=== PATIENT | male | born 1985 | race Two or more races ===

== ENCOUNTER 2016-12-29 14:52 | Emergency (ER) | payer OTHER ==
[~2016-12-29] VITALS: Ht 175.3 cm; Wt 100.0 kg
[2016-12-29 17:28] VITALS: BP 132/73
== END 2016-12-29 17:49 | disposition home or self-care (01) ==
LOC: ER 17:48
DX: H66.92 Otitis media, unspecified, left ear (principal); F17.210 Nicotine dependence, cigarettes, uncomplicated
CPT/HCPCS: 99283

== ENCOUNTER 2017-01-28 11:18 | Emergency (ER) | payer SELFPAY ==
[~2017-01-28] VITALS: Ht 180.3 cm; Wt 95.0 kg
[2017-01-28 11:29] VITALS: BP 139/88
== END 2017-01-28 12:41 | disposition home or self-care (01) ==
LOC: ER 12:25
DX: H60.92 Unspecified otitis externa, left ear (principal); H66.92 Otitis media, unspecified, left ear
CPT/HCPCS: 99283

== ENCOUNTER 2025-04-17 21:56 | Inpatient (IN) | payer MEDICAID ==
[~2025-04-17] VITALS: Ht 177.8 cm; Wt 68.0 kg
[2025-04-17 23:41] LABS: BASOPHILS % 0.3 % (0.0-2.0); EOSINOPHILS % 0.2 % (0.0-5.0); HEMATOCRIT. 27.3 % (42.0-52.0); HEMOGLOBIN. 9.1 g/dL (14.0-18.0); LYMPHOCYTES % 21.1 % (20.0-50.0); MEAN PLATELET VOLUME 7.5 fl (7.4-10.4); MONOCYTES % 7.5 % (2.0-8.0); NEUTROPHILS % 70.9 % (40.0-76.0); PLATELET 297 x1000/uL (130-400); RED BLOOD CELL COUNT 3.33 mill/uL (4.7-6.1); RED CELL DISTRIBUTION WIDTH 14.5 % (11.6-14.6)
[2025-04-17 23:58] LABS: CREATININE 1.0 mg/dL (0.6-1.3); UREA NITROGEN BLOOD 10 mg/dL (9-23)
[2025-04-18] LABS: TROPONIN I HIGH SENSITIVITY < 4 ng/L (3.0-53)
[2025-04-18 03:44] LABS: *AMPHETAMINES SCREEN URINE NEGATIVE (NEGATIVE)
[2025-04-18 03:45] LABS: *BARBITURATES SCREEN URINE NEGATIVE (NEGATIVE); *BENZODIAZEPINES SCREEN URINE NEGATIVE (NEGATIVE); *COCAINE SCREEN URINE NEGATIVE (NEGATIVE); CANNABINOID URINE SCREEN NEGATIVE (NEGATIVE); ECSTASY MDMA SCREEN URINE NEGATIVE (NEGATIVE); METHADONE URINE SCREEN NEGATIVE (NEGATIVE); OPIATES URINE SCREEN NEGATIVE (NEGATIVE); PHENCYCLIDINE URINE SCREEN NEGATIVE (NEGATIVE)
[2025-04-18] MEDS: SODIUM CHLORIDE 0.9% 1,000 ML IV ONE (04:29)
[2025-04-18 05:07] LABS: ASPARTATE AMINOTRANSFERASE 48 IU/L (<34); BILIRUBIN DIRECT 0.2 mg/dL (<=3.0); BILIRUBIN TOTAL 0.6 mg/dL (0.1-1.0); PROTEIN TOTAL 8.7 g/dL (6.0-8.3)
[2025-04-18] MEDS: IOHEXOL-350 100 ML BOTTLE ONE (07:17)
[2025-04-18] MEDS ORDERED: GUAIFENESIN 200MG/10ML SUGAR FREE UDC PO PRN (09:00)
[2025-04-18] MEDS ORDERED: IPRATROPIUM/ALBUTEROL 0.5-3(2.5)MG/3ML NEB HHN PRN (09:00)
[2025-04-18] MEDS ORDERED: CLONIDINE 0.1MG TABLET PO PRN (09:00)
[2025-04-18] MEDS ORDERED: DOXYCYCLINE HYCLATE 100 MG/VIAL IV SCH (11:00)
[2025-04-18] MEDS ORDERED: CEFTRIAXONE 1GM/50ML 50 ML IV SCH (11:30)
[2025-04-18 12:38] VITALS: BP 102/88; PULSE 81; RESP 15; TEMP 36.6; O2SAT 96
[2025-04-18] MEDS: BUDESONIDE 0.5MG/2ML NEB HHN SCH (12:42)
[2025-04-18 12:43] VITALS: PULSE 78; RESP 24
[2025-04-18] MEDS: IPRATROPIUM/ALBUTEROL 0.5-3(2.5)MG/3ML NEB HHN SCH (12:43)
[2025-04-18] MEDS: DOXYCYCLINE 100MG/100ML 100 ML IV SCH (12:50)
[2025-04-18] MEDS: SODIUM CHLORIDE 0.9% 1,000 ML IV SCH (12:50)
[2025-04-18] MEDS: ENOXAPARIN 40MG/0.4ML SYR SUBCUT SCH (12:52)
[2025-04-18] MEDS: PANTOPRAZOLE SODIUM 40 MG/VIAL IV SCH (12:52)
[2025-04-18] MEDS: METHYLPREDNISOLONE SOD SUCC 40MG/ML (ACT-O-VIAL) IV SCH (14:14)
[2025-04-18] MEDS ORDERED: CEFEPIME 2GM/100ML 100 ML IV SCH (15:30)
[2025-04-18 16:00] VITALS: BP 124/84; PULSE 109; RESP 15; TEMP 36.4; O2SAT 96
[2025-04-18 16:38] LABS: BG BASE EXCESS 0.6 mmol/L (-2.0-3.0); BG CARBOXYHEMOGLOBIN 0.1 % (0.5-1.5); BG DEOXYHEMOGLOBIN 2.1 % (0.0-5.0); BG FLOW(L/min) 2.00 L/min; BG FRACTION INSPIRED OXYGEN 28; BG HCO3 ACT 23.7 mmol/L (21.0-28.0); BG METHEMOGLOBIN 0.1 % (0.5-1.5); BG OXYGEN SATURATION 97.9 % (94.0-98.0); BG OXYHEMOGLOBIN 97.7 % (94.0-98.0); BG PCO2 32.6 mmHg (35.0-48.0); BG PH 7.480 (7.350-7.450); BG PO2 110.2 mmHg (83.0-108.0); BG SAMPLE SITE RIGHT RADIAL; BG TOTAL HEMOGLOBIN 10.6 g/dL (13.5-17.5); BG VENT MODE NASAL CANNULA
[2025-04-18] MEDS: CEFTRIAXONE 1GM/50ML 50 ML IV SCH (17:14)
[2025-04-18] MEDS: FLUCONAZOLE 100MG TABLET PO SCH (17:14)
[2025-04-18 18:41] LABS: CLARITY URINE CLEAR (CLEAR); COLOR URINE YELLOW (YELLOW); GLUCOSE URINE NEGATIVE (NEGATIVE); KETONES URINE NEGATIVE (NEGATIVE); LEUKOCYTE ESTERASE URINE NEGATIVE (NEGATIVE); NITRITE URINE NEGATIVE (NEGATIVE); OCCULT BLOOD URINE NEGATIVE (NEGATIVE); PH URINE 7.5 (4.5-8.0); PROTEIN URINE 1+ (NEGATIVE); SPECIFIC GRAVITY URINE 1.044 (1.005-1.030); UROBILINOGEN URINE 2.0 E.U./dL (0.2-1.0)
[2025-04-18 19:46] LABS: BACTERIA URINE NONE SEEN; RBC URINE 0-2 /hpf (0-2); SQUAMOUS EPITHELIAL CELL URINE RARE /lpf (RARE/1+); WBC URINE 0-2 /hpf (0-2)
[2025-04-18 21:10] LABS: LACTATE DEHYDROGENASE 331 IU/L (120-246)
[2025-04-18 21:20] VITALS: PULSE 86; RESP 26; O2SAT 95
[2025-04-18] MEDS: SULFAMETHOXAZOLE/TRIMETHOPRIM 800/160MG TABLET PO SCH (23:04)
[2025-04-19 02:50] VITALS: PULSE 82; RESP 22; O2SAT 99
[2025-04-19 04:00] VITALS: BP 121/88; PULSE 70; RESP 20; TEMP 36.6; O2SAT 98
[2025-04-19] MEDS: DOCUSATE SODIUM 100MG CAPSULE PO PRN (06:20)
[2025-04-19 08:00] VITALS: BP 116/83; PULSE 60; RESP 18; TEMP 36.3; O2SAT 98
[2025-04-19 08:35] LABS: BASOPHILS % 0.4 % (0.0-2.0); EOSINOPHILS % 0.0 % (0.0-5.0); HEMATOCRIT. 28.4 % (42.0-52.0); HEMOGLOBIN. 9.6 g/dL (14.0-18.0); LYMPHOCYTES % 21.8 % (20.0-50.0); MEAN PLATELET VOLUME 7.5 fl (7.4-10.4); MONOCYTES % 5.0 % (2.0-8.0); NEUTROPHILS % 72.8 % (40.0-76.0); PLATELET 281 x1000/uL (130-400); RED BLOOD CELL COUNT 3.47 mill/uL (4.7-6.1); RED CELL DISTRIBUTION WIDTH 15.1 % (11.6-14.6)
[2025-04-19 08:57] LABS: CREATININE 0.8 mg/dL (0.6-1.3); TRIGLYCERIDE 60 mg/dL (0-150); UREA NITROGEN BLOOD 13 mg/dL (9-23)
[2025-04-19 08:58] LABS: LDL CHOLESTEROL 96 mg/dL (5-100)
[2025-04-19 08:59] LABS: ASPARTATE AMINOTRANSFERASE 41 IU/L (<34); BILIRUBIN DIRECT 0.2 mg/dL (<=3.0); BILIRUBIN TOTAL 0.5 mg/dL (0.1-1.0); PHOSPHORUS 4.4 mg/dL (2.5-4.9); PROTEIN TOTAL 9.2 g/dL (6.0-8.3)
[2025-04-19 09:01] LABS: T4 FREE 0.94 ng/dL (0.89-1.76)
[2025-04-19] MEDS: FLUCONAZOLE 100MG TABLET PO SCH (09:02)
[2025-04-19 09:17] LABS: ERYTHROCYTE SEDIMENTATION RATE 115 mm/hr (0-15)
[2025-04-19] MEDS: MAGNESIUM 2 G PREMIX 50 ML IV NR (11:21)
[2025-04-19 11:48] LABS: INFLUENZA TYPE A Presumptive Negative (Pres. Neg.); INFLUENZA TYPE B Presumptive Negative (Pres. Neg.)
[2025-04-19 11:49] LABS: RESPIRATORY SYNCYTIAL VIRUS Not Detected (Not Detectd)
[2025-04-19 12:00] VITALS: BP 119/81; PULSE 79; RESP 18; TEMP 36.4; O2SAT 97
[2025-04-19 16:00] VITALS: BP 116/84; PULSE 60; RESP 18; TEMP 36.5; O2SAT 98
[2025-04-19 21:20] VITALS: PULSE 76; RESP 18; O2SAT 98
[2025-04-20] VITALS (9 sets, daily range): BP systolic 110–151; BP diastolic 70–96; PULSE 64–85; RESP 16–22; TEMP 35.9–36.6; O2SAT 97–100
[2025-04-20 09:07] LABS: HIV SCREEN 4G Preliminary Reactive (Non Reactive)
[2025-04-20 12:31] LABS: HEMATOCRIT. 27.5 % (42.0-52.0); HEMOGLOBIN. 9.0 g/dL (14.0-18.0); MEAN PLATELET VOLUME 7.6 fl (7.4-10.4); PLATELET 291 x1000/uL (130-400); RED BLOOD CELL COUNT 3.31 mill/uL (4.7-6.1); RED CELL DISTRIBUTION WIDTH 15.2 % (11.6-14.6)
[2025-04-20 12:44] LABS: CREATININE 0.9 mg/dL (0.6-1.3); UREA NITROGEN BLOOD 14 mg/dL (9-23)
[2025-04-20 12:47] LABS: PHOSPHORUS 3.0 mg/dL (2.5-4.9)
[2025-04-20 13:27] LABS: INR 1.0
[2025-04-20 23:13] LABS: HEPATITIS A AB IGM NEGATIVE (Negative)
[2025-04-20 23:14] LABS: HEPATITIS B CORE AB IGM NEGATIVE (Negative); HEPATITIS C AB NON REACTIVE (Neg) (Negative)
[2025-04-20 23:54] LABS: BAND% 2.0 % (1.0-6.0); LYMPHOCYTES % MANUAL 7.0 % (20.0-50.0); MONOCYTES % MANUAL 8.0 % (2.0-8.0); NEUTROPHILS % MANUAL 83.0 % (45.0-75.0); PLATELET ESTIMATE NORMAL
[2025-04-21] VITALS (7 sets, daily range): BP systolic 107–122; BP diastolic 55–82; PULSE 66–77; RESP 16–20; TEMP 36.1–36.6; O2SAT 97–100
[2025-04-21] MEDS: METHYLPREDNISOLONE SOD SUCC 40MG/ML (ACT-O-VIAL) IV SCH (01:32)
[2025-04-21 09:07] LABS: HIV 1 ABS Reactive (Non Reactive); HIV 2 ABS Non Reactive (Non Reactive)
[2025-04-21 09:07] LABS: % CD 3 POS. LYMPHOCYTES 67.1 % (57.5-86.2); % CD 4 POS. LYMPHOCYTES 9.4 % (30.8-58.5); % CD 8 POS. LYMPH 55.3 % (12.0-35.5); ABSOLUTE BASOPHILS 0.0 x10E3/uL (0.0-0.2); ABSOLUTE CD 3 403 /uL (622-2402); ABSOLUTE CD 4 HELPER 56 /uL (359-1519); ABSOLUTE CD 8 SUPPRESSOR 332 /uL (109-897); ABSOLUTE EOSINOPHILS 0.0 x10E3/uL (0.0-0.4); ABSOLUTE LYMPHOCYTES 0.6 x10E3/uL (0.7-3.1); ABSOLUTE MONOCYTES 0.6 x10E3/uL (0.1-0.9); ABSOLUTE NEUTROPHILS 10.8 x10E3/uL (1.4-7.0); BASOPHILS 0 % (Not Estab.); EOSINOPHILS 0 % (Not Estab.); IMMATURE GRANULOCYTES 1 % (Not Estab.); IMMATURE GRANULOCYTES ABSOLUTE 0.1 x10E3/uL (0.0-0.1); LYMPHOCYTES 5 % (Not Estab.); MEAN CORPUSCULAR HGB CONC. 31.3 g/dL (31.5-35.7); MONOCYTES 5 % (Not Estab.); NEUTROPHILS 89 % (Not Estab.); PLATELETS 311 x10E3/uL (150-450); RBC 3.27 x10E6/uL (4.14-5.80); RED CELL DISTRIBUTION WIDTH 13.8 % (11.6-15.4); WBC 12.1 x10E3/uL (3.4-10.8)
[2025-04-21 10:57] LABS: HEMATOCRIT. 27.6 % (42.0-52.0); HEMOGLOBIN. 9.0 g/dL (14.0-18.0); MEAN PLATELET VOLUME 7.8 fl (7.4-10.4); PLATELET 316 x1000/uL (130-400); RED BLOOD CELL COUNT 3.31 mill/uL (4.7-6.1); RED CELL DISTRIBUTION WIDTH 15.5 % (11.6-14.6)
[2025-04-21 11:12] LABS: CREATININE 0.9 mg/dL (0.6-1.3); UREA NITROGEN BLOOD 11 mg/dL (9-23)
[2025-04-21 11:14] LABS: PHOSPHORUS 2.8 mg/dL (2.5-4.9)
[2025-04-21 17:05] LABS: LYMPHOCYTES % MANUAL 5.0 % (20.0-50.0); MONOCYTES % MANUAL 5.0 % (2.0-8.0); NEUTROPHILS % MANUAL 90.0 % (45.0-75.0)
[2025-04-21 17:06] LABS: PLATELET ESTIMATE NORMAL
[2025-04-21] MEDS: DOXYCYCLINE HYCLATE 100MG CAPSULE PO SCH (21:55)
[2025-04-22] VITALS (9 sets, daily range): BP systolic 111–119; BP diastolic 64–85; PULSE 61–99; RESP 15–19; TEMP 36.2–36.6; O2SAT 97–100
[2025-04-22] MEDS: TRAZODONE HCL 50MG TABLET PO SCH (21:00)
[2025-04-23] VITALS (8 sets, daily range): BP systolic 114–125; BP diastolic 61–84; PULSE 70–93; RESP 16–20; TEMP 35.8–37.2; O2SAT 97–100
[2025-04-23 07:12] LABS: CREATININE 1.1 mg/dL (0.6-1.3); UREA NITROGEN BLOOD 14 mg/dL (9-23)
[2025-04-23 07:37] LABS: ASPARTATE AMINOTRANSFERASE 52 IU/L (<34); BILIRUBIN DIRECT < 0.1 mg/dL (<=3.0); BILIRUBIN TOTAL 0.2 mg/dL (0.1-1.0); PROTEIN TOTAL 8.7 g/dL (6.0-8.3)
[2025-04-23] MEDS: FAMOTIDINE 20MG/2ML VIAL IV SCH (08:45)
[2025-04-23] MEDS: SERTRALINE HCL 25MG TABLET PO SCH (08:45)
[2025-04-23] MEDS: CEFTRIAXONE 1GM/50ML 50 ML IV SCH (17:00)
[2025-04-24] VITALS (7 sets, daily range): BP systolic 114–129; BP diastolic 76–86; PULSE 74–105; RESP 16–20; TEMP 36.2–36.9; O2SAT 97–100
[2025-04-24 04:08] LABS: MYCOPLASMA PNEUMONIAE IGG 1113 U/mL (0-99); MYCOPLASMA PNEUMONIAE IGM < 770 U/mL (0-769)
[2025-04-24 06:07] LABS: HEMATOCRIT. 28.3 % (42.0-52.0); HEMOGLOBIN. 9.4 g/dL (14.0-18.0); MEAN PLATELET VOLUME 7.5 fl (7.4-10.4); PLATELET 360 x1000/uL (130-400); RED BLOOD CELL COUNT 3.43 mill/uL (4.7-6.1); RED CELL DISTRIBUTION WIDTH 15.1 % (11.6-14.6)
[2025-04-24 06:12] LABS: COMPLEMENT C3 128 mg/dL (82-167); COMPLEMENT C4 16 mg/dL (12-38)
[2025-04-24 06:26] LABS: CREATININE 1.2 mg/dL (0.6-1.3); UREA NITROGEN BLOOD 17 mg/dL (9-23)
[2025-04-24 07:08] LABS: TOXOPLASMA GONDII IGG < 3.0 IU/mL (0.0-7.1); TOXOPLASMA GONDII IGM < 3.0 AU/mL (0.0-7.9)
[2025-04-24 13:08] LABS: *CRYPTOCOCCUS AG TITER SERUM 1:2560 (Neg:<1:5)
[2025-04-24 15:07] LABS: ANTI-NUCLEAR ANTIBODIES DIRECT Negative (Negative)
[2025-04-24 17:10] LABS: ANGIOTENSION CONVERTING ENZYME 74 U/L (14-82)
[2025-04-24] MEDS: FLUCONAZOLE 400MG/200ML BAG 200 ML IV SCH (17:50)
[2025-04-24] MEDS: SULFAMETHOXAZOLE/TRIMETHOPRIM 800/160MG TABLET PO SCH (20:31)
[2025-04-25] VITALS: BP 108/75; PULSE 109; RESP 18; TEMP 36.8; O2SAT 99
[2025-04-25 04:00] VITALS: BP 112/76; PULSE 124; RESP 17; TEMP 36.4; O2SAT 96
[2025-04-25 04:07] LABS: CHLAMYDIA TRACHOMATIS NAA Negative (Negative); NEISSERIA GONORRHOEAE NAA Negative (Negative)
[2025-04-25 06:43] LABS: BASOPHILS % 0.3 % (0.0-2.0); EOSINOPHILS % 0.6 % (0.0-5.0); HEMATOCRIT. 28.8 % (42.0-52.0); HEMOGLOBIN. 9.8 g/dL (14.0-18.0); LYMPHOCYTES % 7.9 % (20.0-50.0); MEAN PLATELET VOLUME 7.6 fl (7.4-10.4); MONOCYTES % 13.2 % (2.0-8.0); NEUTROPHILS % 78.0 % (40.0-76.0); PLATELET 356 x1000/uL (130-400); RED BLOOD CELL COUNT 3.53 mill/uL (4.7-6.1); RED CELL DISTRIBUTION WIDTH 15.4 % (11.6-14.6)
[2025-04-25 07:05] LABS: CREATININE 1.3 mg/dL (0.6-1.3)
[2025-04-25 07:06] LABS: UREA NITROGEN BLOOD 20 mg/dL (9-23)
[2025-04-25 08:00] VITALS: BP 111/69; PULSE 79; RESP 19; TEMP 36.4; O2SAT 96
[2025-04-25 12:00] VITALS: BP 109/79; PULSE 77; RESP 18; TEMP 36.3; O2SAT 96
[2025-04-25 16:00] VITALS: BP 111/72; PULSE 89; RESP 18; TEMP 36.4; O2SAT 96
[2025-04-25 16:43] LABS: LYMPHOCYTES % MANUAL 9.0 % (20.0-50.0); MONOCYTES % MANUAL 19.0 % (2.0-8.0); NEUTROPHILS % MANUAL 72.0 % (45.0-75.0)
[2025-04-25 16:44] LABS: PLATELET ESTIMATE NORMAL
[2025-04-25] MEDS: PREDNISONE 20MG TABLET PO SCH (16:50)
[2025-04-25 20:00] VITALS: BP 116/77; PULSE 123; RESP 18; TEMP 36.4; O2SAT 99
[2025-04-26] VITALS: BP 116/79; PULSE 106; RESP 18; TEMP 36.4; O2SAT 97
[2025-04-26 04:00] VITALS: BP 111/83; PULSE 79; RESP 18; TEMP 36.3; O2SAT 99
[2025-04-26 06:57] LABS: CREATININE 1.4 mg/dL (0.6-1.3); UREA NITROGEN BLOOD 21.0 mg/dL (9-23)
[2025-04-26 08:00] VITALS: BP 108/80; PULSE 89; RESP 18; TEMP 36.6; O2SAT 98
[2025-04-26 12:00] VITALS: BP 112/78; PULSE 78; RESP 18; TEMP 36.4; O2SAT 97
[2025-04-26 16:00] VITALS: BP 118/78; PULSE 98; RESP 16; TEMP 36.2; O2SAT 98
[2025-04-26] MEDS: CEFTRIAXONE 1GM/50ML 50 ML IV SCH (17:08)
[2025-04-26 20:00] VITALS: BP 107/73; PULSE 103; RESP 18; TEMP 36.4; O2SAT 98
[2025-04-26] MEDS: ATOVAQUONE 750 MG/5 ML UDC PO SCH (20:28)
[2025-04-26 21:29] LABS: CLARITY URINE CLEAR (CLEAR); COLOR URINE YELLOW (YELLOW); GLUCOSE URINE NEGATIVE (NEGATIVE); KETONES URINE NEGATIVE (NEGATIVE); LEUKOCYTE ESTERASE URINE NEGATIVE (NEGATIVE); NITRITE URINE NEGATIVE (NEGATIVE); OCCULT BLOOD URINE NEGATIVE (NEGATIVE); PH URINE 6.0 (4.5-8.0); PROTEIN URINE NEGATIVE (NEGATIVE); SPECIFIC GRAVITY URINE 1.021 (1.005-1.030); UROBILINOGEN URINE 0.2 E.U./dL (0.2-1.0)
[2025-04-27] VITALS: BP 107/73; PULSE 94; RESP 18; TEMP 37.1; O2SAT 99
[2025-04-27 04:00] VITALS: BP 118/82; PULSE 102; RESP 18; TEMP 37.4; O2SAT 98
[2025-04-27 08:00] VITALS: BP 111/69; PULSE 106; RESP 20; TEMP 37.3; O2SAT 98
[2025-04-27 08:40] LABS: CREATININE 1.1 mg/dL (0.6-1.3); UREA NITROGEN BLOOD 19 mg/dL (9-23)
[2025-04-27 09:12] LABS: A/G RATIO 0.5 (0.7-1.7); BETA GLOBULIN 1.5 g/dL (0.7-1.3); GAMMA GLOBULINS 2.8 g/dL (0.4-1.8); GLOBULIN TOTAL 5.6 g/dL (2.2-3.9); M-SPIKE Not Observed g/dL (Not Observed); TOTAL PROTEIN SERUM 8.2 g/dL (6.0-8.5)
[2025-04-27] MEDS: SODIUM POLYSTYRENE SULFONATE 15 G/60 ML BOT PO NR (11:28)
[2025-04-27 12:00] VITALS: BP 108/61; PULSE 110; RESP 18; TEMP 37.2; O2SAT 98
[2025-04-27 16:00] VITALS: BP 112/55; PULSE 112; RESP 18; TEMP 37.2; O2SAT 96
[2025-04-27 20:00] VITALS: BP 118/82; PULSE 109; RESP 20; TEMP 37.1; O2SAT 100
[2025-04-28] VITALS: BP 113/69; PULSE 111; RESP 20; TEMP 36.6; O2SAT 99
[2025-04-28 04:00] VITALS: BP 110/80; PULSE 98; RESP 19; TEMP 36.5; O2SAT 100
[2025-04-28 08:00] VITALS: BP 122/78; PULSE 105; RESP 18; TEMP 37.1; O2SAT 98
[2025-04-28 12:00] VITALS: BP 131/92; PULSE 107; RESP 18; TEMP 36.5; O2SAT 98
[2025-04-28] MEDS: MAGNESIUM/ALUMINUM HYDROXIDE/SIMETHICONE 30ML UDC PO PRN (15:00)
[2025-04-28 16:00] VITALS: BP 121/86; PULSE 107; RESP 18; TEMP 36.5; O2SAT 100
[2025-04-28] MEDS: PREDNISONE 20MG TABLET PO SCH (17:21)
[2025-04-29 08:00] VITALS: BP 121/85; PULSE 101; RESP 20; TEMP 36.5; O2SAT 98
[2025-04-29 12:00] VITALS: BP 114/76; PULSE 99; RESP 20; TEMP 36.9; O2SAT 98
[2025-04-29 16:00] VITALS: BP 129/88; PULSE 109; RESP 20; TEMP 37.9; O2SAT 98
[2025-04-29 20:00] VITALS: BP 125/77; PULSE 99; RESP 18; TEMP 37.5; O2SAT 100
[2025-04-30] VITALS: BP 117/79; PULSE 84; RESP 20; TEMP 37.5; O2SAT 98
[2025-04-30 04:00] VITALS: BP 120/85; PULSE 98; RESP 18; TEMP 36.5; O2SAT 100
[2025-04-30 08:00] VITALS: BP 131/80; PULSE 94; RESP 20; TEMP 36.7; O2SAT 100
[2025-04-30 12:00] VITALS: BP 119/83; PULSE 103; RESP 20; TEMP 36.7; O2SAT 100
[2025-04-30 16:00] VITALS: BP 116/85; PULSE 110; RESP 20; TEMP 37.4; O2SAT 100
[2025-04-30] MEDS: FLUCONAZOLE 400MG/200ML BAG 200 ML IV SCH (16:00)
[2025-04-30 20:00] VITALS: BP 132/87; PULSE 72; RESP 16; TEMP 36.4; O2SAT 98
[2025-05-01] VITALS: BP 122/82; PULSE 82; RESP 17; TEMP 36.7; O2SAT 97
[2025-05-01 04:00] VITALS: BP 134/83; PULSE 72; RESP 18; TEMP 37; O2SAT 100
[2025-05-01 08:00] VITALS: BP 105/81; PULSE 91; RESP 18; TEMP 36.6; O2SAT 96
[2025-05-01 08:20] LABS: BASOPHILS % 0.1 % (0.0-2.0); EOSINOPHILS % 0.7 % (0.0-5.0); HEMATOCRIT. 28.6 % (42.0-52.0); HEMOGLOBIN. 9.4 g/dL (14.0-18.0); LYMPHOCYTES % 11.3 % (20.0-50.0); MEAN PLATELET VOLUME 7.4 fl (7.4-10.4); MONOCYTES % 10.2 % (2.0-8.0); NEUTROPHILS % 77.7 % (40.0-76.0); PLATELET 268 x1000/uL (130-400); RED BLOOD CELL COUNT 3.44 mill/uL (4.7-6.1); RED CELL DISTRIBUTION WIDTH 15.9 % (11.6-14.6)
[2025-05-01 08:44] LABS: CREATININE 0.7 mg/dL (0.6-1.3); UREA NITROGEN BLOOD 8 mg/dL (9-23)
[2025-05-01 08:46] LABS: PHOSPHORUS 3.2 mg/dL (2.5-4.9)
[2025-05-01] MEDS ORDERED: LIDOCAINE HCL 1% 10 MG/ML 10ML VIAL ONE (10:30)
[2025-05-01 11:51] LABS: GLUCOSE CSF 64 mg/dL (41-75)
[2025-05-01 13:09] LABS: CSF TOTAL VOLUME 2.5 mL
[2025-05-01 13:10] LABS: CSF APPEARANCE CLEAR (CLEAR)
[2025-05-01 15:10] VITALS: BP 128/82; PULSE 74; RESP 18; TEMP 36.6; O2SAT 98
[2025-05-01 16:00] VITALS: BP 122/90; PULSE 111; RESP 18; TEMP 37.7; O2SAT 97
[2025-05-01 20:00] VITALS: BP 126/93; PULSE 103; RESP 18; TEMP 36.5; O2SAT 100
[2025-05-02] VITALS: BP 123/86; PULSE 88; RESP 18; TEMP 36.3; O2SAT 96
[2025-05-02 04:00] VITALS: BP 137/98; PULSE 94; RESP 16; TEMP 36.9; O2SAT 97
[2025-05-02 08:00] VITALS: BP 125/92; PULSE 73; RESP 17; TEMP 36.9; O2SAT 98
[2025-05-02] MEDS: MAGNESIUM 2 G PREMIX 50 ML IV NR (09:15)
[2025-05-02] MEDS ORDERED: ATOV750O PO (11:11)
[2025-05-02] MEDS ORDERED: P20 PO (11:11)
[2025-05-02] MEDS ORDERED: TRAZ-251 PO (11:11)
[2025-05-02] MEDS ORDERED: FLUC200T51 PO (11:11)
[2025-05-02] MEDS: SERTRALINE HCL 25MG TABLET PO SCH (11:55)
[2025-05-02 12:00] VITALS: BP 127/60; PULSE 77; RESP 18; TEMP 36.8; O2SAT 99
[2025-05-02 12:40] VITALS: BP 127/60; PULSE 77; RESP 18; TEMP 98.2
[2025-05-10] MEDS ORDERED: ATOVAQUONE 750 MG/5 ML UDC PO SCH (09:00)
== END 2025-05-02 13:50 | disposition home or self-care (01) | DRG 892 ==
LOC: ER 21:56 → 6WST 04-18 05:52 → EDBEDREQ 04-18 05:56 → EDBEDREQTM 04-18 05:56 → ENRESERV 04-18 06:08 → 6WST 04-19 03:20 → 6EST 04-28 14:44
PROVIDERS: ADMIT Student in an Organized Health Care Education/Training Program; ATTEND Student in an Organized Health Care Education/Training Program
PROC: 009U3ZX Drainage of Spinal Canal, Percutaneous Approach, Diagnostic (ICD-10-PCS; principal; 2025-05-01)
PROC: B01B1ZZ Fluoroscopy of Spinal Cord using Low Osmolar Contrast (ICD-10-PCS; 2025-05-01)
DX: J96.01 Acute respiratory failure with hypoxia (principal); B20 Human immunodeficiency virus [HIV] disease; E87.0 Hyperosmolality and hypernatremia; A51.49 Other secondary syphilitic conditions; J18.9 Pneumonia, unspecified organism; K75.3 Granulomatous hepatitis, not elsewhere classified; D63.8 Anemia in other chronic diseases classified elsewhere; A53.0 Latent syphilis, unspecified as early or late; J44.0 Chronic obstructive pulmonary disease with (acute) lower respiratory infection; I10 Essential (primary) hypertension; R63.4 Abnormal weight loss; J44.1 Chronic obstructive pulmonary disease with (acute) exacerbation; E87.1 Hypo-osmolality and hyponatremia; E86.0 Dehydration; F43.23 Adjustment disorder with mixed anxiety and depressed mood; R04.2 Hemoptysis; R05.3 Chronic cough; Z82.49 Family history of ischemic heart disease and other diseases of the circulatory system; Z87.891 Personal history of nicotine dependence; Z79.899 Other long term (current) drug therapy; Z82.5 Family history of asthma and other chronic lower respiratory diseases; Z88.0 Allergy status to penicillin; Z88.1 Allergy status to other antibiotic agents
CPT/HCPCS: 36415; 36600; 62328; 71045; 71275; 74176; 80048; 80061; 80076; 80305; 81003; 82164; 82270; 82375; 82550; 82595; 82728; 82805; 82945; 83520; 83540; 83550; 83605; 83615; 83735; 84100; 84145; 84155; 84157; 84165; 84439; 84443; 84481; 84484; 85025; 85044; 85379; 85651; 86038; 86141; 86160; 86256; 86359; 86360; 86592; 86593; 86635; 86698; 86705; 86709; 86738; 86788; 86789; 87070; 87106; 87116; 87210; 87340; 87389; 87420; 87491; 87591; 87804; 87899; 93005; 94070; 94640; 94664; 94760; 98960; 99285; A4606; J0692; J0696; J1308; J1450; J1650; J2003; J2470; J2919; J3475; J3490; J7030; J7512; J7626; Q9967